=== PATIENT | female | born 1990 | race Caucasian/White ===

== ENCOUNTER 2017-01-17 15:10 | Emergency (ER) | payer MEDICAID ==
[~2017-01-17] VITALS: Wt 61.0 kg
[2017-01-17 16:29] LABS: ADD SCAN DIFF NO
[2017-01-17 16:42] LABS: BASOPHILS % 0.2 % (0.0-2.0); EOSINOPHILS % 0.4 % (0.0-7.0); HEMATOCRIT 33.8 % (37.0-47.0); HEMOGLOBIN 11.8 g/dl (12.0-16.0); LYMPHOCYTES # 1.5 10^3/ul (0.8-2.9); LYMPHOCYTES % 18.7 % (15.0-51.0); MEAN CORPUSCULAR HEMOGLOBIN 31.1 pg (29.0-33.0); MEAN CORPUSCULAR HGB CONC 34.9 g/dl (32.0-37.0); MEAN CORPUSCULAR VOLUME 88.9 fl (82.0-101.0); MEAN PLATELET VOLUME 10.4 fl (7.4-10.4); MONOCYTE # 0.5 10^3/ul (0.3-0.9); MONOCYTES % 5.9 % (0.0-11.0); NEUTROPHIL # 6.1 10^3/ul (1.6-7.5); NEUTROPHILS % 74.4 % (39.0-77.0); PLATELET COUNT 244 10^3/UL (140-415); RED CELL DISTRIBUTION WIDTH 12.1 % (11.5-14.5); WHITE BLOOD COUNT 8.2 10^3/ul (4.8-10.8)
--- NOTE | 2017-01-17 16:57 | RADRPT ---
PROCEDURE: US OB. CLINICAL INDICATION: Size and dates , pelvic pressures TECHNIQUE: Multiple sonographic images of the pelvis and gravid uterus were obtained. The images were reviewed on a PACS workstation. COMPARISON: No prior studies are available for comparison. FINDINGS: There is a single viable intrauterine gestation. Cardiac activity is present with 161 beats per min ivan. There is a variable presentation. The placenta appears anterior. There is no evidence of placental abruption. There is a normal amount of amniotic fluid with a MVP= 3.8 cm. Measurements were made in order to determine age. The results are as follows: BPD =2.9 cm HC =10.9 cm AC =9.4 cm FL =1.7 cm Estimated gestational age of approximately 15 weeks and 2 days based on ultrasound measurements. Clinical age: 15 weeks and 1 day. The estimated date of delivery is 07/09/2017, based on ultrasound measurements. The right ovary measures 3.7 x 1.5 x 1.8 cm. The left ovary measures 2.4 x 1.6 cm. There is normal Doppler flow in the ovaries. RPTAT: AA IMPRESSION: Single viable intrauterine gestation of approximately 15 weeks and 2 days based on ultrasound measu rements. Normal ovaries. .David Marcano MD, Date Time Electronically viewed and signed by .David Marcano MD, on 01/17/2017 16:56 .S/
[2017-01-17 17:05] LABS: ADD UMIC YES; URINE BILIRUBIN (Dip) NEGATIVE (NEGATIVE); URINE BLOOD (Dip) NEGATIVE (NEGATIVE); URINE COLOR LT. YELLOW (YELLOW); URINE GLUCOSE (Dip) NEGATIVE (NEGATIVE); URINE KETONES (Dip) 15 (NEGATIVE); URINE LEUKOCYTE ESTERASE (Dip) TRACE (NEGATIVE); URINE NITRITE (Dip) NEGATIVE (NEGATIVE); URINE TOTAL PROTEIN (Dip) NEGATIVE (NEGATIVE); URINE UROBILINOGEN (Dip) 0.2 E.U./dL (0.1-1.0)
[2017-01-17 17:20] LABS: BACTERIA,URINE FEW; SQUAMOUS EPITHELIAL CELL,UR MODERATE; URINE RBCS NONE SEEN /HPF (0)
[2017-01-17] MEDS ORDERED: TYL500 PO (18:01)
[2017-01-17 18:16] VITALS: BP 117/77; PULSE 92; RESP 18
--- NOTE | 2017-01-17 19:05 | ERD ---
ER Documentation Chief Complaint Date/Time DATE: 01/17/17 TIME: 19:02 Chief Complaint VAG BLEED 12 WEEKS PREG HPI This is a 26-year-old female presents to the ER with pelvic pain that started yesterday. Patient states that pelvic pain radiates to her back. Pelvic pain is crampy in nature and has been intermittent. She has not tried anything for her pain. She is currently 12 weeks . She denies any vaginal bleeding. She denies any urinary frequency or dysuria. She denies any vaginal discharge. A0. ROS 12 point review of systems was done, all negative except per HPI. Medications Home Meds Active Scripts Acetaminophen* (Tylenol*) 500 Mg Tab, 500 MG PO Q4H Y for MILD PAIN LEVEL 1-3 for 3 Days, TAB Prov:GENE JOHNSON Tea 01/17/17 PMhx/Soc Medical and Surgical Hx: pt denies Medical Hx, pt denies Surgical Hx Hx Alcohol Use: No Hx Substance Use: No Hx Tobacco Use: No Physical Exam Vitals Vital Signs Date Time Temp Pulse Resp B/P Pulse Ox O2 Delivery O2 Flow Rate FiO2 01/17/17 18:16 92 18 117/77 99 Room Air 01/17/17 15:13 98.0 71 18 139/65 99 Physical Exam GENERAL: The patient is well developed and appropriate for usual state of health , in no apparent distress. HEENT: Atraumatic. CHEST: Clear to auscultation bilaterally. There are no rales, wheezes or rhonchi. HEART: Regular rate and rhythm. No murmurs, clicks, rubs or gallops. ABDOMEN: Soft, nontender and nondistended. Good bowel sounds. No rebound or guarding. No gross peritonitis. No gross organomegaly or masses. No Gurrola sign or McBurney point tenderness. BACK: No midline or flank tenderness. NEURO: Alert and oriented. Result Diagram: 01/17/17 1615 Results 24 hrs Laboratory Tests Test 01/17/17 16:15 White Blood Count 8.210^3/ul Red Blood Count 3.8010^6/ul Hemoglobin 11.8g/dl Hematocrit 33.8% Mean Corpuscular Volume 88.9fl Mean Corpuscular Hemoglobin 31.1pg Mean Corpuscular Hemoglobin Concent 34.9g/dl Red Cell Distribution Width 12.1% Platelet Count 88200^3/UL Mean Platelet Volume 10.4fl Neutrophils % 74.4% Lymphocytes % 18.7% Monocytes % 5.9% Eosinophils % 0.4% Basophils % 0.2% Nucleated Red Blood Cells % 0.0/100WBC Neutrophils # 6.110^3/ul Lymphocytes # 1.510^3/ul Monocytes # 0.510^3/ul Eosinophils # 0.010^3/ul Basophils # 0.010^3/ul Nucleated Red Blood Cells # 0.010^3/ul Urine Color LT. YELLOW Urine Clarity CLEAR Urine pH 6.0 Urine Specific [place] 1.010 Urine Ketones 15 Urine Nitrite NEGATIVE Urine Bilirubin NEGATIVE Urine Urobilinogen 0.2 E.U./dL Urine Leukocyte Esterase TRACE Urine Microscopic RBC NONE SEEN/HPF Urine Microscopic WBC 2-5/HPF Urine Squamous Epithelial Cells MODERATE Urine Bacteria FEW Urine Hemoglobin NEGATIVE Urine Glucose NEGATIVE% Urine Total Protein NEGATIVE Beta HCG, Quantitative 61994.0mIU/ml Procedures/MDM Differential diagnosis: Threatened , missed , incomplete , ectopic , molar , UTI, pyelonephritis, placenta previa, placenta abrupto. This is a 26-year-old female presents to the ER with pelvic pain at this time etiology of pelvic pain is unknown. There is no evidence of urinary tract infection, pyelonephritis, abnormalities with the intrauterine . Patient is afebrile and well-appearing. Patient will be sent home with Tylenol. She is to follow-up with her primary care doctor within 1-2 days return to ER sooner if symptoms worsen. My medical decision making was shared with the patient she understands and agrees with plan. Departure Diagnosis: Primary Impression: Pelvic pain Condition: Stable Patient Instructions: Pelvic Pain In : Unclear (2-3 Trimester) Additional Instructions: Llame al doctor MAANA y noni jason ODELL PARA DENTRO DE 1-2 MILLER.Dgale a la secretaria que nosotros le instruimos hacer esta odell.Avise o llame si shultz condicin se empeora antes de la odell. Regresa aqui si peor o no mejor. GENE JOHNSON Jan 17, 2017 19:05
== END 2017-01-17 18:18 | disposition home or self-care (01) ==
LOC: FTE 15:10
DX: O26.892 Other specified pregnancy related conditions, second trimester (principal); R10.2 Pelvic and perineal pain; Z3A.15 15 weeks gestation of pregnancy
CPT/HCPCS: 76801; 81001; 84702; 85025; 86900; 86901; Z7502; 81003

== ENCOUNTER 2017-03-24 14:26 | Outpatient (CLI) | payer MEDICAID ==
[~2017-03-24] VITALS: Ht 154.9 cm; Wt 77.3 kg
[~2017-03-24 14:26] MED LIST: TYL500 PO
[2017-03-24 15:23] VITALS: Ht 154.9 cm; Wt 77.3 kg
[2017-03-24 15:25] VITALS: BP 93/54; PULSE 78; RESP 18
--- NOTE | 2017-03-24 16:15 | RADRPT ---
PROCEDURE: US biophysical profile an ultrasound of the cervix. CLINICAL INDICATION: Contractions. labor and 24 weeks gestational age. TECHNIQUE: Multiple sonographic images of the uterus were obtained. Transvaginal sonogra phy of the cervix was also performed. The images were reviewed on a PACS workstation. COMPARISON: No prior studies are available for comparison. FINDINGS: There is a single live intrauterine gestation. heart rate is 131 beats per minute. The position is cephalic. The placenta is anterior grade 0 with no abruption or previa. The JV is 6.8 cm. (Normal = 5-20 cm.) Cervical length is 4.5 cm. Breathing Movement: 2 Gross Body Movement: 2 Tone: 2 Qualitative Amniotic Fluid Volume: 2 TOTAL: 8 IMPRESSION: 1. The biophysical score is 8/8. 2. Cervical length is 4.5 cm. RPTAT: QQ .Ravinder Rush MD, MD Date Time Electronically viewed and signed by .Ravinder Rush MD, on 03/24/2017 16:15 .R/
[2017-03-24 16:49] LABS: ADD UMIC YES; UR ASCORBIC ACID NEGATIVE (NEGATIVE); UR BILIRUBIN (Dip) NEGATIVE (NEGATIVE); UR BLOOD (Dip) NEGATIVE (NEGATIVE); UR CLARITY SLIGHTLY CLOUDY (CLEAR); UR COLOR YELLOW (YELLOW); UR GLUCOSE (Dip) NEGATIVE (NEGATIVE); UR KETONES (Dip) 2+ mg/dL (NEGATIVE); UR LEUKOCYTE ESTERASE (Dip) NEGATIVE Leu/ul (NEGATIVE); UR MUCUS MODERATE /HPF (NONE SEEN); UR NITRITE (Dip) NEGATIVE (NEGATIVE); UR RBC 1 /HPF (0-5); UR SPECIFIC GRAVITY (Dip) 1.031 (1.003-1.030); UR SQUAMOUS EPITHELIAL CELL FEW /HPF (FEW); UR TOTAL PROTEIN (Dip) 1+ mg/dl (NEGATIVE); UR UROBILINOGEN (Dip) NEGATIVE (NEGATIVE)
--- NOTE | 2017-03-24 17:51 | QN ---
Documentation Comment iup 24 weeks abd pain improved vss exam wnl no rebond no gaurding no cva tenderness ua-neg US wnl a/p iup 24 weeks false labor [facility] SILVIA ALEXANDER MD Mar 24, 2017 17:51
== END 2017-03-24 17:53 | disposition home or self-care (01) ==
LOC: OBT 14:26 → L-D 14:29 → OBT 17:53
DX: O47.02 False labor before 37 completed weeks of gestation, second trimester (principal); Z3A.24 24 weeks gestation of pregnancy
CPT/HCPCS: 76817; 76818; 81001; Z7500; G0463

== ENCOUNTER 2017-07-03 10:30 | Inpatient (IN) | END 2017-07-05 13:45 | disposition home or self-care (01) | DRG 775 | DX: O70.0 First degree perineal laceration during delivery (principal); O71.82 Other specified trauma to perineum and vulva; Z23 Encounter for immunization; Z3A.37 37 weeks gestation of pregnancy; Z37.0 Single live birth ==